=== PATIENT | male | born 1995 | race Caucasian/White ===

== ENCOUNTER 2019-03-12 19:55 | Emergency (ER) | payer SELFPAY ==
[2019-03-12 19:56] VITALS: BP 149/93; PULSE 60; RESP 18; TEMP 37.2; O2SAT 97; BMI 29.9
--- NOTE | 2019-03-12 20:27 | ED.DCSUM_ITS ---
History of Present Illness Chief Complaint: Laceration Informant: Patient Onset: Today Mechanism/Context: Incised Quality of Pain: - - Patient denies pain Current Severity: Gone Maximum Severity: Mild Worsened by: Initial injury Relieved by: Not applicable Narrative: Patient is a 23-year-old [id number] male who was skinning a deer and sustained a laceration over the the MCP joint left long finger. He is able to extend and flex his fingers. Immunizations up-to-date. He denies antibiotic allergies. He denies paresthesia, anesthesia or motor weakness. He has no other complaints. Tetanus Immunization: 5-10 years Prior similar symptoms: No Recent Illness/Hospitalization: No - Past Medical History (1) No significant past medical history Status: Acute Past Medical History - Allergies and Home Meds Allergies/Adverse Reactions: Allergies No Known Allergies Allergy (Verified 07/04/14 11:32) Primary Care Physician: Phoenix Coughlin MD [Primary Care Provider] - Prior records reviewed: No Past Medical History: None Surgical History: no surgical history Lives: Spouse/ Significant Other Smoking Status: Never smoker Drugs: None Review of Systems Musculoskeletal: Denies: Myalgias, Arthralgias, Neck pain, Back pain, Swelling, Extremity Pain Skin: Reports: Wounds. Denies: Rash, Abscess, Abrasions Neurological: Denies: Weakness, Parasthesia, Numbness Endocrine: Denies: Polyuria, Polydipsia Hematologic: Denies: Easy bruising, Easy bleeding Physical Exam Vital Signs/Narrative: Vital Signs Temp Pulse Resp BP Pulse Ox 03/12/19 19:56 98.9 F 60 18 149/93 H 97 Inital Vital Signs reviewed: Yes General: Well nourished, Well developed Head: Normocephalic, Atraumatic Eyes: Perrl, EOMI Cardiovascular: Regular rate, Regular rhythm, No murmurs, Normal S1, Normal S2 Respiratory: No distress, CTA bilaterally, Chest nontender Skin: Normal color, No rash, Cyanosis, Diaphoresis, Jaundice, Trauma - There is a 7 mm laceration over the MCP joint of the left long finger. Neurological: Alert, Oriented x3, Cranial nerves II-XII grossly intact, Normal Strength, Normal Sensation, - - The extensor commonest tendon is functionally intact. Visualizing the wound and position his hand was then during the injury there appears to be a laceration of the extensor commonness tendon. - Glascow Coma Scale Eye Opening: Spontaneous Motor: Obeys Commands Verbal: Oriented Coma Scale Total: 15 Diagnostic/Tx/Re-eval - Medical Decision Making Patient has a laceration which needs exploration. Plan is to anesthetize the area and extend the laceration to visualize the extensor tendon and determine if this is a small wilberto in the tendon versus a significant laceration. With laceration extensor, tendon. He was referred to Dr. Miller does hand surgery. Patient was instructed to call office to be seen in 2 to 3 days. He received first dose of antibiotic's in the emergency department and discharged prescription for antibiotics. Procedures Procedure(s): The area was anesthetized with 1% lidocaine for local infiltration. Wound was irrigated. The laceration was extended using a 15 blade. There is a laceration of the extensor commonness tendon. The laceration is an oblique angle and involves 85 to 90% of the tendon. The wound was irrigated. Using 6-0 Prolene a [id number] stitch was placed which approximated the tendon. The knot was buried. Patient's wound/hand and forearm was cleansed. He was placed in a plaster fabricated splint so that his fingers and wrist were in extension to alleviate any tension on the tendon. ED Disposition - Plan for ED Patient: Disposition: Home or Assisted Living Diagnosis: Extensor tendon laceration of finger with open wound Instructions: LACERATION, Tendon Prescriptions: Cephalexin [Keflex] 500 mg PO Q8 #14 cap Transmission Status: Pending to [facility] Referrals: Phoenix Coughlin MD [Primary Care Provider] - Aimee Miller DO [STAFF PHYSICIAN] - 2 Days for wound check Additional Instructions: Must keep splint absolutely clean and dry
[2019-03-12] MEDS: Cephalexin 250 MG Capsule 500 MG PO (22:06)
[2019-03-12 22:09] VITALS: BP 128/84; PULSE 65; RESP 15; O2SAT 98
== END 2019-03-12 22:10 | disposition home or self-care (01) ==
PROVIDERS: Emergency Provider Emergency Medicine; Family Provider Family Medicine; PCP Family Medicine
DX: S66.323A Laceration of extensor muscle, fascia and tendon of left middle finger at wrist and hand level, initial encounter (principal); W26.8XXA Contact with other sharp object(s), not elsewhere classified, initial encounter; Y93.9 Activity, unspecified; Y92.9 Unspecified place or not applicable
CPT/HCPCS: 26418; 29125; 99283

== ENCOUNTER 2019-03-21 11:20 | Day surgery (SDC) | payer SELFPAY ==
[2019-03-15 14:24] VITALS: BMI 29.9
--- NOTE | 2019-03-20 02:52 | HP_ITS ---
I have re-examined the patient. There are no clinical changes since date of exam. Intake Vital Signs 03/15/19 Body Mass Index (BMI) 29.9 Intake Visit Reasons: Left hand Is patient in pain?: Yes Pain scale (1-10): 4 Allergies No Known Allergies Allergy (Verified 03/15/19 14:24) [facility] Social History (Updated 03/20/19 @ 14:52 by Aimee Miller DO) Smoking Status: Never smoker HPI Left hand: Surgical H&P: Yes Details: Parts of this documentation were recorded by a scribe, this documentation accurately reflects the service provided and the decisions made by me, Aimee Miller DO 03/15/19 1420. ALF COKER is a 23 year old M here today for an ED followup on his left hand. Patient states that he was skinning a deer and accidently cut his hand. Patient notes that he went to the ED where he was stitched. Patient was put into a splint which he has kept on at all times. He was given cephalexin which he has been taking. He states that he was very sore yesterday but it is better today. He denies any fevers or chills. ROS Musc Reports joint pain, Reports stiffness Skin/Breast Reports system reviewed and no additional complaints, except as docu Neuro Yes system reviewed and no additional complaints, except as docu Ortho Exam Right Wrist/Hand Skin/Wound: Yes Swelling Left Wrist/Hand Date of injury: 03/12/19 Skin/Wound: Yes Swelling Contralateral Normal: Yes A1 sanam trigger: No No rales rhonchi wheezing, no abdominal pain, no audible bruits Assessment & Plan Plan Personally reviewed the patient's medical history, medications, surgeries and recent exams if available. X-rays were reviewed. There is no obvious fracture, dislocation, or lucency noted. Educated on the anatomy of the hand and reviewed mechanism of the tendons. He has a significant tendon laceration of the extensor tendon 3rd finger of the left hand. Reviewed post op restrictions, post op rehab and encouraged him to stop chewing. Reviewed the pre-operative plans with the patient. Risks and benefits of the procedure were fully explained, including but not limited to infection, neurovascular injury, continued pain, arthritis, stiffness, need for further surgery, re-injury, DVT, PE, general risks of anesthesia, and loss of limb or life. The patient understands all the risks and does wish to proceed with written consent. Follow up post op or sooner if pain, swelling, numbness or associated symptoms, or concerns develop. All questions answered. Patient in agreement of plan. Coding Level of Care Code Off young,lamont,level 3 03/20/19 1452 <Electronically signed by Aimee iglesias DO> Date _ Aimee Miller DO
[2019-03-21] VITALS (8 sets, daily range): BP systolic 117–139; BP diastolic 78–95; PULSE 58–80; RESP 14–16; TEMP 36.3–37.1; O2SAT 97–99; BMI 30.2
[2019-03-21] MEDS: Lactated Ringers 1,000 ML 100 ML IV (12:03)
[2019-03-21] MEDS: Cefazolin 2 GM in 0.9% Normal Saline 100 ML IV (15:13)
--- NOTE | 2019-03-21 15:17 | DCINST_ITS ---
Discharge Diet: No Restrictions - leave splint in place, follow up in one week with vicente ZAMAN for initiation of OT [phone] Discharge Activity: May Not Drive May shower in (days): 1 Ice area for (Minutes): 20 - Every hour while awake. Weight Bearing Status: Weight bearing as tolerated Keep extremity elevated above heart level: Operative Extremity Call your doctor if your incision/area has: Continuous Slow Oozing, Sudden Increased Bleeding, Increased Pain/ Swelling, Increased Redness, Foul Smelling Discharge Call your doctor if you observe: Fever of 101 or Higher, Coldness, Increased Pain, Numbness or Tingling, Change in Color, Calf discomfort Allergies/Adverse Reactions: Allergies No Known Allergies Allergy (Verified 03/21/19 11:49) Medications to take at Discharge Oxycodone HCl/Acetaminophen [Percocet 5/325] 1 - 2 tablet PO Q6H PRN PRN 5 Days #28 tablet 03/21/19 The following prescriptions were given: Oxycodone HCl/Acetaminophen [Percocet 5/325] 1 - 2 tablet PO Q6H PRN PRN 5 Days #28 tablet PRN Reason: Pain Transmission Status: Sent to [facility] Phys[facility] [Primary [facility] Provider] - Test Results: Test results from this visit will be discussed in further detail at your follow- up appointment, if applicable. Please Follow Up With: Aimee Miller, - [phone]
--- NOTE | 2019-03-21 15:17 | OP.PCM_ITS ---
Report of Operation Date of Procedure: 03/21/19 Pre-Operative Diagnosis: left middle finger extensor laceration/traumatic Post-Operative Diagnosis: same Surgery/Procedure Performed:: left middle finger laceration revision, repair extensor tendon middle finger with paratenon repair Type of Anesthesia:: BlockTavo Anesthesiologist: David Huang Estimated Blood Loss (mL): none Fluids Replaced: 800cc Description of Procedure: Preop note Patient is a 23-year-old male who was using a knife and accidentally cut his left middle finger with extensor tendon. Went to the emergency room where they noted that the tendon was 80% lacerated but was still intact and sent to my office for further evaluation. Patient has extensor tendon extensor mechanism intact of his left middle finger he is right-hand dominant he denies numbness tingling or other issues. Discussed operative indications patient elected proceed with operative indication for his left middle finger repair as indicated. Risk benefits and alternatives discussed with patient. Risks including but not limited to blood loss, blood clot, infection, neurovascular, failure procedure, loss of life and loss of limb. Patient is aware like to proceed with left middle finger laceration debridement irrigation and repair of extensor tendon. Operative note Patient seen and examined preop holding area. Left hand was marked. Middle finger was marked. Patient brought to the operating room and placed supine on the operating table. Sign, anesthesia, antibiotics were administered. Left arm was prepped and draped in usual sterile fashion with a tourniquet around his upper arm after Tavo block was initiated. We then marked out our incision extended both proximally and distally extending from the inch oblique incision over his MP joint of his left third and finger. Timeout is performed. We use a 15 blade to cut through the skin dissect down tenotomies and to the level of the laceration which the ER head tagged with a stitch as well. We remove the stitch. We gently debrided back the tendon edges to stable tendon repair we then used a 4-0 Ethibond in a Krak?w stitch and then reapproximated the tendon edges with the finger in extension. We then did oversew tucking the knot to complete our repair. We then repaired the peritenon with 3-0 Vicryl. We irrigated the incision with copious muscle sterile saline debrided any loose pieces or anything that we had encountered which there was no obviously pieces but we did visually inspect the entire area. We did trim back the laceration to a better skin edge. The skin was then closed with interrupted 4-0 nylon stitches. Sterile dressings were applied tourniquet was deflated for a total working time of 30 minutes. Patient tolerated procedure well no complication child recovery room in stable condition Postoperative note Nonweightbearing left upper semi-splint at all times Pharmacy has pain prescription Call with increased pain numbness tingling further issues arise Patient did receive a local block postoperatively in the operating room Call with concerns Dragon disclaimer This note was generated with [employer] dictation software. It may contain incorrect words, spelling, and punctuation that were not noted in checking the note before signing.
[2019-03-21] MEDS: Bupivacaine 0.25% 30 ML Vial (15:59)
[2019-03-21] MEDS: HYDROcodone Bitartrate/Apap 5/325 Tablet PO (17:09)
== END 2019-03-21 17:26 | disposition home or self-care (01) ==
LOC: SDC 11:25 → AC 11:29
PROVIDERS: Referring Provider Orthopaedic Surgery; Visit Provider Orthopaedic Surgery
PROC: (CPT 26418; principal; 2019-03-21 12:10)
DX: S66.323A Laceration of extensor muscle, fascia and tendon of left middle finger at wrist and hand level, initial encounter (principal); W45.8XXA Other foreign body or object entering through skin, initial encounter; Y93.89 Activity, other specified; Y92.9 Unspecified place or not applicable; Y99.9 Unspecified external cause status; F17.220 Nicotine dependence, chewing tobacco, uncomplicated
CPT/HCPCS: 26418; J7120; J2405

== ENCOUNTER 2019-05-16 08:30 | Outpatient (RCR) | payer SELFPAY ==
[2019-03-15 14:24] VITALS: BMI 29.9
[2019-03-21 11:50] VITALS: BMI 30.2
--- NOTE | 2019-03-29 14:10 | HP.OTEVAL_ITS ---
Patient's Visit Information ALF COKER is a 24 year old M, referred to Occupational Therapy by Aimee Miller DO, with a diagnosis of left 3rd digit extensor tendon repair. Date of Evaluation: 03/28/19 Occupational Therapist: Adia Vazquez, RAPHAEL/Jessica, CHT - Subjective Subjective: This 24 year old male was seen for OT eval with dx of 3rd distal extensor tendon repair- pt went to ER on Mar 12, and followed with sx on due to laceration of extensor tendon- pt arrives with sx dressing on in need of zone 5 orthosis and ed. on protocol. pt currently not working - ADLs Comments: pt limited with all bilateral hand use due to healing tendon repair- pt in need of increase assistance with home mtg and ADL tasks at this time. - Pain left hand 1 Pain Intensity Range: 1, 4 - ROM MP: right MF 90 PIP: right MF90 DIP: right MF 60 ROM Comments: left not tested at this time- pt demo full MCP ext - Sensation Sensation Comments: denies - Quick DASH-Disab of Arm,Shoulder& Hand Quick DASH Score: 68.1800 - Goals Goal:100% adherence to protocol: Yes Comment: zone 5 extensor tendon protocol Goal:Daily scar massage when approriate: Yes Goal:ROM equal to unaffected hand: Yes Goal:Community Worker/Pinch strength at least 75% of unaffected hand: Yes Goal:No pain with affected hand use: Yes Goal:Full use of affected hand in daily activities including: Yes Goal:Decrease scar hypersensitivity: Yes - Rehabilitation General Assessment: pt demo healing incision over zone 5 MF MCP. Due to healing extensor tendon repair pt demo need for skilled OT services 2x week for 6 weeks to assist pt with recovery, ed. pt on tendon repair protocol zone 5 ICAM- therapist jacqeu. custom orthosis, and ed. pt on light AROM of DIP and PIP- no active motion of MCP-at this time- will initate with protocol instructions- light wrist ROM (50%) of motion. pt demo understanding and agree to POC. Rehabilitation Potential: Good - Anticipated Interventions Anticipated Interventions: ICAM Protocol, A/AAROM/PROM, Strengthening, Scar Care, Triggerpoint Release, Desensitization, Sensory Retraining, Modalities, Orthoses, Joint Protection/Energy Conservation - Visit Plan Frequency: 1-2x /Week Duration: 6 Weeks TEXT: Thank you for the opportunity to evaluate your patient. For Medicare and Medicare HMO plans, please review the plan of care and approve it. It will need to be FAXED BACK to us at [phone] for Medicare purposes. Please let me know if there are questions or concerns regarding this plan of care. Physician Signature: Date:
--- NOTE | 2019-08-18 09:31 | HP.OTDCSUM ---
It has been my pleasure to treat ALF COKER under orders from Dr. Aimee Miller DO, for the diagnosis of left 3rd digit extensor tendon repair for a total of 7 visit(s). Please see the following information for a summary of their discharge status. % Improvement: 85 Objective/Function: right process cheese cooker strength 100#left 85#. right lateral pinch 14# left 14# right tripod inch 16# left 14#. left MF MCP +5/100 PIP +5/110 Patient Goals: Regain Mobility, Regain Strength, Improve Fine Motor Skills, Use Hand/Wrist/Arm Normally Again Goal:100% adherence to protocol: Yes Goal:Daily scar massage when approriate: Yes Goal:ROM equal to unaffected hand: Yes Goal:Building Construction Professor/Pinch strength at least 75% of unaffected hand: Yes Goal:No pain with affected hand use: Yes Goal:Full use of affected hand in daily activities including: Yes Goal:Decrease scar hypersensitivity: Yes Plan: held prgression due to uncrease in pain If there are questions or concerns regarding this patient's occupational therapy, please fell free to call me at [phone]. Thank you for the referral of this patient. Sincerely, Adia Vazquez, OTR/L, CHT
== END 2019-05-16 19:00 | disposition home or self-care (01) ==
LOC: OT 08:30
PROVIDERS: Family Provider Family Medicine; PCP Family Medicine; Referring Provider Orthopaedic Surgery; Visit Provider Orthopaedic Surgery
DX: Z98.890 Other specified postprocedural states (principal)
CPT/HCPCS: 97035; 97110; 97166; 97530

== ENCOUNTER 2020-02-13 11:55 | Emergency (ER) | payer SELFPAY ==
[2019-04-02 09:00] VITALS: BMI 30.2
[2020-02-13 11:57] VITALS: BP 157/100; PULSE 88; RESP 18; TEMP 35.1; O2SAT 99; BMI 29.2
== END 2020-02-13 15:35 | disposition left against medical advice (07) ==
LOC: ED 14:36
PROVIDERS: Emergency Provider Emergency Medicine
DX: T14.8XXA Other injury of unspecified body region, initial encounter (principal); Z53.21 Procedure and treatment not carried out due to patient leaving prior to being seen by health care provider; X58.XXXA Exposure to other specified factors, initial encounter; Y93.9 Activity, unspecified; Y92.9 Unspecified place or not applicable; Y99.9 Unspecified external cause status

== ENCOUNTER 2020-07-02 11:35 | Emergency (ER) | payer OTHER, SELFPAY ==
[2020-07-02 11:36] VITALS: BP 185/113; PULSE 60; RESP 18; TEMP 36.4; O2SAT 100; BMI 30.6
--- NOTE | 2020-07-02 11:44 | EKG12_ITS ---
Test Reason : CP Blood Pressure : / mmHG Vent. Rate : 046 BPM Atrial Rate : 046 BPM P-R Int : 146 ms QRS Dur : 110 ms QT Int : 436 ms P-R-T Axes : 003 050 017 degrees QTc Int : 381 ms Sinus bradycardia with Premature atrial complexes Possible Inferior infarct , age undetermined Abnormal ECG Confirmed by EDUARDO NOBLE, SHENA ([id number]), website/blog editor LUKE BURKS ([id number]) on 07/04/2020 9:29:31 AM Referred By: RYAN Confirmed By:MAXIMILIANO CLARK MD
[2020-07-02] MEDS: Morphine 4 MG/ML Syringe IV (11:53)
[2020-07-02] MEDS: 0.9% Normal Saline 1,000 ML 1000 ML IV (11:53)
[2020-07-02 11:54] LABS: Absolute Neutrophil Count 3.9 X10^3/uL (2.0-7.7); Basophil# 0.05 X10^3/uL; Basophil% 0.8 % (0-1); Eosinophil# 0.09 X10^3/uL; Eosinophils% 1.4 % (0-5); Hematocrit 46.6 % (40-54); Hemoglobin 15.5 g/dL (13.0-16.5); Lymphocyte % 29.9 % (19-41); Mean Corp Hgb Conc 33.3 g/dL (32-36); Mean Corpuscular Hgb 30.6 pg (27.0-32.0); Mean Corpuscular Volume 91.9 fL (80-94); Mean Platelet Vol. 9.6 fl (6.2-12.0); Monocyte# 0.42 X10^3/uL; Monocyte% 6.6 % (0-10); NRBC Flagged by Analyzer 0 % (0-5); Neutrophil # 3.88 X10^3/uL (2.7-7.7); Neutrophil % 61.1 % (47-70); Platelet Count 299 K/mm3 (150-450); RBC Distribution Width CV 12.5 % (11.6-14.6); RBC Distribution Width SD 41.3 fl (35.1-43.9); Red Blood Count 5.07 M/mm3 (4.6-6.2); White Blood Count 6.4 K/mm3 (4.4-11.0)
--- NOTE | 2020-07-02 11:57 | ED.VIS.CHEST ---
History of Present Illness Chief Complaint: Chest Pain Informant: Patient Onset: Today Narrative: Is a 25-year-old male that denies any past medical history presenting with chest, rib and back pain. Patient states he woke up with it today around 10:30 AM. He states he is never had any pain like this before. He states is worse when he moves or tries to take deep breath. He states he feels short of breath because it hurts to take a deep breath. States the pain is constant. Did not take anything for pain prior to arrival. The pain does not radiate but it is diffuse and has chest area. He denies any swelling of his legs or history of PE/DVT. Denies any associated nausea or vomiting. He notes he has not eaten or drank anything yet today. Patient did cut down about 17 trees over the weekend but he states until this morning he is actually been feeling great. Denies feeling sore over the past few days. He denies any other complaints at this time. Past Medical History - Allergies and Home Meds Allergies/Adverse Reactions: Allergies No Known Allergies Allergy (Verified 07/02/20 11:39) Primary Care Physician: [place] [place] [Primary Care Provider] - Past Medical History: None Surgical History: no surgical history Lives: With Family Smoking Status: Never smoker Review of Systems General: Denies: Chills, Fever, Sweats Eyes: Denies: Visual changes - bilaterally, Diplopia ENT: Denies: Rhinorrhea, Sore throat Cardiovascular: Reports: Chest pain. Denies: Palpitations, Heart racing Respiratory: Reports: Dyspnea. Denies: Cough, Dyspnea on exertion Gastrointestinal: Denies: Abdominal pain, Nausea, Vomiting, Diarrhea, Melena, Hematochezia Genitourinary: Denies: Dysuria, Hematuria, Frequency Musculoskeletal: Denies: Back pain, Extremity Pain Skin: Denies: Rash, Wounds Neurological: Denies: Headache, Weakness, Numbness Physical Exam Vital Signs/Narrative: Vital Signs Temp Pulse Resp BP Pulse Ox 07/02/20 11:36 97.5 F L 60 18 185/113 H 100 Inital Vital Signs reviewed: Yes General: Well nourished, Well developed, No Acute Distress Head: Normocephalic, Atraumatic Eyes: Perrl, EOMI ENT: Moist mucous membranes, No rhinorrhea Neck: Supple, Nontender Cardiovascular: Regular rate, Regular rhythm, No murmurs, - - 2+ bilateral DP and radial pulses Respiratory: No distress, Diminished - Bilaterally at the bases, Chest tenderness - Highly reproducible chest pain with palpation of the sternum and anterior ribs. Negative for: Wheezing, Decreased Air Movement Abdomen: Soft, Nontender, Nondistended, Normal bowel sounds Back: Nontender, Normal Inspection Extremities: Nontender, No edema Skin: Normal color, No rash Neurological: Alert, Oriented x3, Cranial nerves II-XII grossly intact, Normal Strength, Normal Sensation Psychological: Normal affect, Normal Mood Diagnostic/Tx/Re-eval Chest X-Ray - ED: 2 View, Read by ED Physician, Read by Radiologist, No Acute Disease - Rhythm Strip Rhythm Strip: Sinus Rhythm Rate: 66 Ectopy: None - EKG Initial EKG Interpretation: Sinus Bradycardia - Sinus bradycardia rate of 46 Normal axis Normal intervals Normal ST segments Treatment: Toradol IV - Medical Decision Making Patient is evaluated for chest pain. It started about 1 hour prior to arrival. Pain is worse with any movement of the chest or deep inspiration. Patient appears uncomfortable but nontoxic and in no acute distress. He is intermittently bradycardic but his blood pressure is actually elevated. I suspect this is just physiologic bradycardia. Cardiac work-up is largely negative. Patient is low risk for PE and D-dimer is negative. I do not think a CTA is indicated. I do not think he has a PE. Differential includes costochondritis and pleurisy. This does not seem to be GI in nature. Patient given dose of Toradol and has significant improvement of his symptoms. He does state he is very nervous about his heart and also very nervous that this could be his gallbladder and his mother had similar symptoms and ended up being her gallbladder. I did add on lipase and LFTs which are normal. I do not think his symptoms are GI in nature and I do not think he is having acute cholecystitis. I do not think right upper quadrant ultrasound is obtained. Will check delta troponin and as long as this is normal patient be discharged home with instructions to take Motrin 600 mg for his pain. He is instructed to follow-up with his primary care doctor and states he will follow-up at the [facility]. Patient is counseled on signs and symptoms requiring return to the emergency room. Patient verbalizes agreement and understand this plan. Patient discharged home in stable and improved condition. ED Disposition - Plan for ED Patient: Disposition: Home or Assisted Living Diagnosis: Acute chest wall pain Instructions: ED Chest Wall Pain, Costochondritis, ED Pleurisy Prescriptions: Ibuprofen [Motrin] 600 mg PO Q6H PRN PRN #20 tab PRN Reason: Pain 1-10 Or Fever Prescription Printed Referrals: [facility] [Primary Care Provider] - Additional Instructions: The exact cause of your chest pain is not clear. It could be inflammation of the cartilage on your chest or could be pleurisy which is inflammation of the lining around her lungs. Either way the treatment is anti-inflammatories like ibuprofen. Your heart, lungs, gallbladder and other work-up are normal. I think you are safe to go home and follow-up with your primary care doctor.
--- NOTE | 2020-07-02 12:00 | RAD_ITS ---
STUDY: X-RAY CHEST REASON FOR EXAM: Male, 25 years old. Chest pain radiating to the shoulders and sternum. TECHNIQUE: PA and lateral views of the chest. COMPARISON: Comparison is made with prior study dated 09/12/2014. FINDINGS: EKG electrodes are seen. The lungs are clear and expanded. There is no demonstrated pleural abnormality. Normal size heart. Normal mediastinum and jane. Normal visualized pulmonary arteries. Normal visualized aortic arch and descending thoracic aorta. Normal visualized thoracic spine. Normal visualized ribs, clavicles, and shoulders. There is no demonstrated abnormality of the visualized soft tissue structures of the upper abdomen. RAD/Chest PA and Lateral IMPRESSION: Normal x-ray examination of the chest. Electronically Signed: Maynor Joe MD at 12:29 EDT , Service support ,
[2020-07-02 12:06] LABS: D-Dimer Quantitative (DVT/PE) <= 0.27 FEU/ug/m (0.27-0.49)
[2020-07-02 12:16] LABS: Anion Gap 3 (5-15); BUN 14 mg/dL (7-18); BUN/Creat Ratio 14.5 RATIO (10-20); CPK Total, Creatine Kinase 133 U/L (39-308); Calcium,Total 9.1 mg/dL (8.5-10.1); Chloride 105 mmol/L (98-107); Creatinine, Serum 0.96 mg/dL (0.70-1.30); EST Glomerular Filtration Rate 101 mL/min (>60); Est Glom Filt Rate - Afr Amer 122 mL/min (>60); Estimated Creatinine Clearance 140.59 ml/min; Glucose 103 mg/dL (74-106); Potassium 3.9 mmol/L (3.5-5.1); Sodium Level 140 mmol/L (136-145); Thyroid Stim Hormone (TSH) 1.61 uIU/mL (0.358-3.74)
[2020-07-02 12:36] VITALS: BP 130/95; PULSE 49; RESP 14; O2SAT 99
[2020-07-02] MEDS: Ketorolac 15 MG/ML Vial IV (12:36)
[2020-07-02 13:00] VITALS: BP 131/78; PULSE 79; RESP 16; O2SAT 98
[2020-07-02 14:00] VITALS: BP 128/74; PULSE 81; RESP 16; O2SAT 98
[2020-07-02 14:11] LABS: AST(SGOT) 21 U/L (15-37); Alanine Aminotransfer ALT/SGPT 50 U/L (16-61); Albumin, Serum 4.1 g/dL (3.2-5.0); Alkaline Phosphatase 73 U/L (45-117); Globulin 3.8 g/dL (2.2-4.2); Lipase 63 U/L (73-393); Protein, Total 7.9 g/dL (6.4-8.2)
[2020-07-02 15:00] VITALS: BP 136/78; PULSE 81; RESP 16; O2SAT 98
[2020-07-02 15:46] VITALS: BP 138/74; PULSE 73; RESP 19; O2SAT 96
== END 2020-07-02 15:47 | disposition home or self-care (01) ==
PROVIDERS: Emergency Provider Emergency Medicine
DX: R07.89 Other chest pain (principal); M54.9 Dorsalgia, unspecified; R07.81 Pleurodynia; R00.1 Bradycardia, unspecified; R03.0 Elevated blood-pressure reading, without diagnosis of hypertension
CPT/HCPCS: 71046; 80048; 80076; 82550; 83690; 84443; 84484; 85025; 85379; 93005; 96361; 96374; 96375; 99284; J7030; A4216

== ENCOUNTER 2022-01-26 18:00 | Emergency (ER) | payer OTHER, SELFPAY ==
[2022-01-26 18:02] VITALS: BP 158/108; PULSE 63; RESP 15; TEMP 37.2; O2SAT 99; BMI 25.8
[2022-01-26 18:20] VITALS: BP 158/108; PULSE 63; RESP 15; TEMP 37.2; O2SAT 99
--- NOTE | 2022-01-26 18:21 | ED.VIS.GI ---
HPI HPI - GI History of Present Illness Chief Complaint: Abd Pain Informant: patient Abdominal Pain/Flank Pain Onset: Days (4) Context: Gradual Onset Timing: Continuous and Waxes and wanes Quality: Sharp Location: LLQ Worsened by: Food Relieved by: Nothing Nausea/Vomiting/Emesis GI Symptom: Negative for Nausea or Vomiting Diarrhea/Melena/Hematochezia GI Symptom: Negative for Diarrhea, Melena or Hematochezia Associated Symptoms Associated Symptoms: Negative for Dysuria, Frequency or Hematuria Narrative Narrative: Patient presents with left-sided abdominal pain that has been getting worse over the last 4 days. Patient states it is gradually getting worse. Patient states it is constant. Patient states it waxes and wanes. Patient describes the pain as sharp. Patient states it is mainly over the left mid abdomen and left lower abdomen. Patient states it is worse after eating. Patient states nothing seems to help with it. Patient denies any nausea or vomiting. Patient states he has a history of diverticulosis. Patient denies any fevers or chills. Patient denies any urinary complaints. PFSH [facility] Medical History (Updated 01/26/22 @ 21:[address] Jamir Mccormack DO) Arachnoid cyst Diverticulosis History of pineal cyst Home Medications ibuprofen 600 mg tablet 600 mg PO Q6H PRN PRN Pain 1-10 Or Fever #20 TABLETS 07/02/20 [Rx Last Taken Unknown] ciprofloxacin HCl 500 mg tablet 500 mg PO BID #20 TABLETS 01/26/22 [Rx Last Taken Unknown] metronidazole 500 mg tablet 500 mg PO Q6H #40 tabs 01/26/22 [Rx Last Taken Unknown] Allergy/AdvReac Type Severity Reaction Status Date / Time No Known Allergies Allergy Verified 01/26/22 18:04 Surgical History S/P tendon repair Social History Smoking Status: Never smoker ROS ROS ED Constitutional Constitutional ED: Denies chills or fever(s) Eyes Eyes: Denies blurry vision or change in vision ENT ENT ED: Denies rhinorrhea or sore throat Cardiovascular Cardiovascular: Denies chest pain or palpitations Respiratory/Chest Respiratory/Chest: Reports cough; Denies dyspnea Gastrointestinal Gastrointestinal: Reports abdominal pain; Denies diarrhea, melena, nausea or vomiting Genitourinary Genitourinary ED: Denies dysuria or hematuria Musculoskeletal Musculoskeletal: Denies back pain or neck pain Integumentary Denies abscess or rash Neurologic Neurologic: Reports headache(s); Denies weakness Allergic/Immunologic Allergic/Immunologic ED: Denies mouth swelling or urticaria EXAM Physical Exam Const Vital Signs: 01/26/22 18:02 01/26/22 18:20 01/26/22 20:02 Temperature 99 F 99 F Temperature Source Temporal Temporal Pulse Rate 63 63 76 Respiratory Rate 15 15 18 Blood Pressure 158/108 H 158/108 H Blood Pressure Mean 124 124 Pulse Ox 99 99 99 Oxygen Delivery Method Room Air Room Air Room Air Positive well nourished and well developed General Appearance ED: well developed HEENT Reports moist mucous membranes Neck supple and no JVD Resp normal respiratory effort and clear to auscultation bilaterally Cardio regular rate, regular rhythm and no murmurs GI normal to inspection, nondistended, normoactive bowel sounds Palpation: soft and tender LLQ; Negative for guarding or rebound tenderness present Extremity normal to inspection General Extremety ED: Negative for edema or tenderness General Extremity: Negative for edema Neuro oriented x3, CN's II-XII intact bilaterally and no sensory deficits noted Sensorium / Orientation: alert Motor Exam: strength 5/5 throughout Psych mental status grossly normal Skin no rashes or lesions noted MDM MDM MDM Narrative Medical decision making narrative: Patient was given IV fluids, morphine, and Zofran. CBC was within normal limits. Comprehensive metabolic profile was essentially within normal limits. Lipase was normal. Urinalysis does not show any evidence of urinary tract infection or hematuria. CT scan of the abdomen pelvis was obtained. There is diverticulitis of the descending colon. There is no perforation or abscess. Patient was advised of his findings. Patient was given a dose of Cipro and Flagyl here. Patient was given prescriptions for Cipro and Flagyl. Patient was instructed to avoid alcohol while taking the Flagyl. Patient was instructed to follow-up with his primary care physician in 5 to 7 days. Patient understood and was agreeable with the plan. All questions were answered. Lab Data Attestation: I reviewed the patient's lab results. Labs: Laboratory Results - last 24 hr 01/26/22 01/26/22 01/26/22 18:10 18:10 19:30 WBC 9.8 RBC 4.38 L Hgb 13.7 Hct 40.1 MCV 91.6 MCH 31.3 MCHC 34.2 RDW Std Deviation 39.8 RDW Coeff of Debbie 11.9 Plt Count 328 MPV 10.2 Immature Gran % (Auto) 0.300 Neut % (Auto) 62.4 Lymph % (Auto) 30.4 [place] % (Auto) 5.6 Eos % (Auto) 0.8 Baso % (Auto) 0.5 Absolute Neuts (auto) 6.1 Absolute Lymphs (auto) 2.98 Nucleated RBC % 0 Sodium 139 Potassium 3.3 L Chloride 105 Carbon Dioxide 26.0 Anion Gap 8 BUN 16 Creatinine 0.88 Estim Creat Clear Calc 143.76 Est GFR (MDRD) Af Amer 135 Est GFR (MDRD) Non-Af 111 BUN/Creatinine Ratio 18.3 Glucose 97 Calcium 9.8 Total Bilirubin 0.80 AST 15 ALT 20 Alkaline Phosphatase 77 Total Protein 8.6 H Albumin 4.6 Globulin 4.0 Albumin/Globulin Ratio 1.2 Lipase 99 Urine Color Yellow Urine Clarity Clear Urine pH 5.0 Ur Specific [place] 1.025 Urine Protein 30 H Urine Glucose (UA) Normal Urine Ketones 150 A* Urine Occult Blood Negative Urine Nitrite Negative Urine Bilirubin Negative Urine Urobilinogen 1 H Ur Leukocyte Esterase 25 H Urine RBC 0 SEEN Urine WBC 0-5 SEEN Ur Squamous Epith Cells 0-5 SEEN Urine Bacteria 1+ Urine Mucus 1+ Radiography Diagnostic Testing: Clinical Impression(s) from Imaging Studies Abdomen/Pelvis CT 01/26/22 18:25 IMPRESSION: Acute uncomplicated diverticulitis of the distal descending colon. Electronically Signed: Cora Wakefield MD at 20:34 EDT [place] Location ID and State: [id number] / Tel , Service support , Discharge Plan Triage Chief Complaint: Abd Pain ED Provider: Jamir Mccormack Dx/Rx/DC Orders Clinical Impression: Diverticulitis large intestine, Abdominal pain, acute, left lower quadrant Instructions: ED Diverticulitis Prescriptions: New metronidazole [metronidazole] 500 mg tablet 500 mg PO Q6H Qty: 40 0RF ciprofloxacin HCl [ciprofloxacin HCl] 500 mg tablet 500 mg PO BID Qty: 20 0RF No Action ibuprofen 600 MG tablet 600 mg PO Q6H PRN PRN (Reason: Pain 1-10 Or Fever) Qty: 20 0RF [facility] [facility] - 5-7 Days Disposition Disposition: Home, Self Care
--- NOTE | 2022-01-26 18:25 | CT_ITS ---
EXAM: CT ABDOMEN AND PELVIS WITH INTRAVENOUS CONTRAST CLINICAL INDICATION: Abdominal pain -- IV PO Contrast TECHNIQUE: Helically acquired images were obtained of the abdomen and pelvis with intravenous contrast. This CT exam was performed using one or more of the following dose reduction techniques: automated exposure control, adjustment of the mA and/or kV according to patient size, and/or use of iterative reconstruction technique. This report was created using [employer] report generation technology. CONTRAST: Oral and amp; IV Gastrografin and amp; 100mL Isovue-370 COMPARISON: None. FINDINGS: LOWER THORAX: Unremarkable. Lung bases are clear. No cardiomegaly. No significant pericardial effusion. ABDOMEN: LIVER: Unremarkable. Homogeneous. No focal mass. GALLBLADDER AND BILE DUCTS: Unremarkable. No calcified gallstones. No gallbladder distention or wall edema. No intra- or extrahepatic biliary ductal dilation. PANCREAS: Unremarkable. No focal cystic or solid mass. SPLEEN: Unremarkable. Normal size without focal cystic or solid mass. ADRENALS: Unremarkable. No nodules. KIDNEYS AND URETERS: Unremarkable. Normal renal size and position. No hydronephrosis. STOMACH AND BOWEL: Diverticulosis. Mild to moderate pericolonic stranding around the distal descending colon consistent with acute diverticulitis. No organized collection. No bowel obstruction. PELVIS: APPENDIX: No evidence of acute appendicitis. Normal visualized appendix. BLADDER: Unremarkable. REPRODUCTIVE: Unremarkable as visualized. No mass. ABDOMEN and PELVIS: INTRAPERITONEAL SPACE: Unremarkable. No ascites or other fluid collection. No free air. BONES/JOINTS: Unremarkable. No suspicious lytic or blastic abnormality. SOFT TISSUES: Unremarkable. No discrete abdominal or pelvic wall hernia. VASCULATURE: Unremarkable. Abdominal aorta is normal in caliber. LYMPH NODES: Unremarkable. No enlarged lymph nodes. CT/Abdomen/Pelvis WITH Contrast IMPRESSION: Acute uncomplicated diverticulitis of the distal descending colon. Electronically Signed: Cora Wakefield MD at 20:34 EDT [place] Location ID and State: [id number] / Tel , Service support ,
[2022-01-26] MEDS: Morphine 4 MG/ML Syringe IV (18:33)
[2022-01-26] MEDS: 0.9% Normal Saline 1,000 ML 1000 ML IV (18:33)
[2022-01-26] MEDS: Ondansetron 4 MG/2 ML Vial IV (18:34)
[2022-01-26 18:38] LABS: Absolute Lymphocyte Count 2.98 X10^3/uL (0.83-4.51); Absolute Neutrophil Count 6.1 X10^3/uL (2.0-7.7); Basophil# 0.05 X10^3/uL; Basophil% 0.5 % (0-1); Eosinophil# 0.08 X10^3/uL; Eosinophils% 0.8 % (0-5); Hematocrit 40.1 % (40-54); Hemoglobin 13.7 g/dL (13.0-16.5); Lymphocyte # 2.98 X10^3/ul (0.83-4.51); Lymphocyte % 30.4 % (19-41); Mean Corp Hgb Conc 34.2 g/dL (32-36); Mean Corpuscular Hgb 31.3 pg (27.0-32.0); Mean Corpuscular Volume 91.6 fL (80-94); Mean Platelet Vol. 10.2 fl (6.2-12.0); Monocyte# 0.55 X10^3/uL; Monocyte% 5.6 % (0-10); NRBC Flagged by Analyzer 0 % (0-5); Neutrophil # 6.11 X10^3/uL (2.7-7.7); Neutrophil % 62.4 % (47-70); Platelet Count 328 K/mm3 (150-450); RBC Distribution Width CV 11.9 % (11.6-14.6); RBC Distribution Width SD 39.8 fl (35.1-43.9); Red Blood Count 4.38 M/mm3 (4.6-6.2); White Blood Count 9.8 K/mm3 (4.4-11.0)
[2022-01-26 18:48] LABS: ALB/GLOB Ratio 1.2 RATIO (0.9-2.4); AST(SGOT) 15 U/L (15-37); Alanine Aminotransfer ALT/SGPT 20 U/L (16-61); Albumin, Serum 4.6 g/dL (3.2-5.0); Alkaline Phosphatase 77 U/L (45-117); Anion Gap 8 (5-15); BUN 16 mg/dL (7-18); BUN/Creat Ratio 18.3 RATIO (10-20); Calcium,Total 9.8 mg/dL (8.5-10.1); Chloride 105 mmol/L (98-107); Creatinine, Serum 0.88 mg/dL (0.70-1.30); EST Glomerular Filtration Rate 111 mL/min (>60); Est Glom Filt Rate - Afr Amer 135 mL/min (>60); Estimated Creatinine Clearance 143.76 ml/min; Glucose 97 mg/dL (74-106); Lipase 99 U/L (73-393); Potassium 3.3 mmol/L (3.5-5.1); Protein, Total 8.6 g/dL (6.4-8.2); Sodium Level 139 mmol/L (136-145)
[2022-01-26 19:42] LABS: Red Blood Cells-Urine 0 SEEN /hpf (0-5)
[2022-01-26 19:45] LABS: Color, Urine Yellow (Yellow); Glucose, Dipstick Normal (Normal); Leukocyte Esterase-Dipstick 25 /ul (Negative); Nitrite-Dipstick Negative (Negative); Occult Blood-Urine Negative /ul (Negative); Protein-Dipstick 30 mg/dl (Negative); Specific Gravity, Urine 1.025 (1.002-1.030); Urine Bilirubin Dipstick Negative (Negative); Urine Clarity Clear (Clear); Urine Urobilinogen 1 mg/dl (Normal)
[2022-01-26 19:51] LABS: Ketone-Dipstick 150 mg/dl (Negative)
[2022-01-26 19:54] LABS: Bacteria 1+ /hpf (None Seen); Squamous Epithelial Cells - UA 0-5 SEEN /hpf (0-5); White Blood Cells 0-5 SEEN /hpf (0-5)
[2022-01-26 19:55] LABS: Mucous, Urine 1+ /hpf (<or=2+)
[2022-01-26 20:02] VITALS: PULSE 76; RESP 18; O2SAT 99
[2022-01-26] MEDS: Ciprofloxacin 500 MG Tablet PO (21:24)
[2022-01-26] MEDS: metroNIDAZOLE 500 MG Tablet PO (21:24)
== END 2022-01-26 21:34 | disposition home or self-care (01) ==
PROVIDERS: Emergency Provider Emergency Medicine; Visit Provider Emergency Medicine
DX: K57.32 Diverticulitis of large intestine without perforation or abscess without bleeding (principal); R10.32 Left lower quadrant pain; Z79.899 Other long term (current) drug therapy
CPT/HCPCS: 74177; 80053; 81001; 83690; 85025; 96361; 96374; 96375; 99284; J7030; Q9967; A4216; J2405

== ENCOUNTER 2023-05-24 08:21 | Emergency (ER) | payer OTHER, SELFPAY ==
[2023-05-24 08:23] VITALS: BP 145/88; PULSE 61; RESP 16; TEMP 36.4; O2SAT 97; BMI 25.7
--- NOTE | 2023-05-24 09:02 | ED.VIS.GI ---
HPI HPI - GI History of Present Illness Chief Complaint: Abd Pain Informant: patient Abdominal Pain/Flank Pain Onset: Today Context: Sudden Onset Timing: Waxes and wanes Quality: Aching Location: LUQ and LLQ Worsened by: Nothing Relieved by: - (Pressure) Nausea/Vomiting/Emesis GI Symptom: Positive for Nausea and Vomiting Onset: Yesterday Quality: Positive for Nonbilious; Negative for Blood streaks, Coffee ground or Hematemesis Diarrhea/Melena/Hematochezia GI Symptom: Positive for Diarrhea and Melena; Negative for Hematochezia Onset: Today Stool Quality: Positive for Black Associated Symptoms Associated Symptoms: Negative for Dysuria, Frequency or Hematuria Narrative Narrative: Patient presents with abdominal pain that began today. Patient states his pain is mainly over the left side of his abdomen but radiates to the right. Patient states it began rather suddenly this morning. Patient states that it has been waxing and waning. Patient states nothing makes it worse. Patient states if he puts pressure on the area it feels better. Patient admits to some nausea and vomiting yesterday but denies any vomiting today. Patient states he has noted some black stools today. Patient states he has had some watery diarrhea. Patient states he had an upset stomach couple days ago and took some Pepto-Bismol. Patient thinks his stools may have been black prior to taking Pepto-Bismol but is not sure. Patient denies any urinary complaints. Patient denies any fevers or chills. Patient states he has a history of diverticulitis and thinks it could be a flareup of this. [facility] Medical History Arachnoid cyst Diverticulosis History of pineal cyst Home Medications ibuprofen 600 mg tablet 600 mg PO Q6H PRN PRN Pain 1-10 Or Fever #20 TABLETS 07/02/20 [Rx Last Taken Unknown] ciprofloxacin HCl 500 mg tablet 500 mg PO BID #20 TABLETS 01/26/22 [Rx Last Taken Unknown] metronidazole 500 mg tablet 500 mg PO Q6H #40 tabs 01/26/22 [Rx Last Taken Unknown] omeprazole 20 mg capsule,delayed release 20 mg PO DAILY #30 CAPSULES 05/24/23 [Rx Last Taken Unknown] Allergy/AdvReac Type Severity Reaction Status Date / Time No Known Allergies Allergy Verified 05/24/23 08:23 Surgical History S/P tendon repair Social History Smoking Status: Never smoker ROS ROS ED Constitutional Constitutional ED: Denies chills or fever(s) Eyes Eyes: Denies blurry vision or change in vision ENT ENT ED: Denies rhinorrhea or sore throat Cardiovascular Cardiovascular: Denies chest pain or palpitations Respiratory/Chest Respiratory/Chest: Reports cough; Denies dyspnea Gastrointestinal Gastrointestinal: Reports abdominal pain, diarrhea, melena, nausea and vomiting Genitourinary Genitourinary ED: Denies dysuria or hematuria Musculoskeletal Musculoskeletal: Denies back pain or neck pain Integumentary Denies abscess or rash Neurologic Neurologic: Denies headache(s) or weakness Allergic/Immunologic Allergic/Immunologic ED: Denies mouth swelling or urticaria EXAM Physical Exam Const Vital Signs: 05/24/23 08:23 Temperature 97.6 F L Temperature Source Temporal Pulse Rate 61 Respiratory Rate 16 Blood Pressure 145/88 H Blood Pressure Mean 107 Pulse Ox 97 Oxygen Delivery Method Room Air Positive well nourished and well developed General Appearance ED: well developed and NAD HEENT Reports moist mucous membranes Neck supple and no JVD Resp normal respiratory effort and clear to auscultation bilaterally Cardio regular rate and regular rhythm GI non-tender and non-distended Palpation: soft Neuro CN's II-XII intact bilaterally, moves all extremities and no sensory deficits noted Sensorium / Orientation: alert Motor Exam: strength 5/5 throughout Psych mental status grossly normal MDM MDM MDM Narrative Medical decision making narrative: Differential diagnosis includes diverticulitis, gastrointestinal bleeding, peptic ulcer disease, ureteral calculus, and viral illness. CBC will be obtained to assess for leukocytosis and anemia. Comprehensive metabolic profile will be obtained to assess for hepatic function, renal function, and electrolyte abnormality. Urinalysis will be obtained to assess for urinary tract infection and hematuria. Stool for occult blood will be obtained to assess for gastrointestinal bleeding. Lab Data Attestation: I reviewed the patient's lab results. Lab results narrative: CBC was reviewed and was within normal limits. Comprehensive metabolic profile was reviewed and was within normal limits. Urinalysis was reviewed. There is no evidence of urinary tract infection or hematuria. Stool for occult blood was reviewed and was positive. Labs: Laboratory Results - last 24 hr 05/24/23 05/24/23 09:30 09:35 WBC 7.4 RBC 4.63 Hgb 14.2 Hct 42.6 MCV 92.0 MCH 30.7 MCHC 33.3 RDW Std Deviation 41.5 RDW Coeff of Debbie 12.3 Plt Count 285 MPV 9.6 Immature Gran % (Auto) 0.400 Neut % (Auto) 66.8 Lymph % (Auto) 23.9 [place] % (Auto) 6.8 Eos % (Auto) 1.8 Baso % (Auto) 0.3 Absolute Neuts (auto) 4.9 Absolute Lymphs (auto) 1.76 Nucleated RBC % 0 Sodium 141 Potassium 4.0 Chloride 109 H Carbon Dioxide 28.0 Anion Gap 4 L BUN 14 Creatinine 0.85 Estim Creat Clear Calc 150.43 Est GFR (MDRD) Af Amer 139 Est GFR (MDRD) Non-Af 115 BUN/Creatinine Ratio 16.5 Glucose 107 H Calcium 9.2 Total Bilirubin 0.60 AST 21 ALT 27 Alkaline Phosphatase 72 Total Protein 7.9 Albumin 4.1 Globulin 3.8 Albumin/Globulin Ratio 1.1 Urine Color Yellow Urine Clarity Clear Urine pH 7.0 Ur Specific [place] 1.010 Urine Protein 30 H Urine Glucose (UA) Normal Urine Ketones Negative Urine Occult Blood Negative Urine Nitrite Negative Urine Bilirubin Negative Urine Urobilinogen 1 H Ur Leukocyte Esterase 25 H Urine RBC 0 SEEN Urine WBC 0-5 SEEN Ur Squamous Epith Cells 0-5 SEEN Urine Bacteria 0 SEEN Urine Mucus 0 SEEN Treatment and Re-Evaluation :: Patient was given IV fluids. Patient was feeling better on reevaluation. Patient was advised of his findings. Patient was instructed to eat a bland diet. Patient [facility] Patient was instructed to follow-up with him in 3 to 5 days. Patient was given a prescription for omeprazole. Patient was instructed to return if worse in any way. Patient understood and was agreeable with the plan. All questions were answered. Discharge Plan Triage Chief Complaint: Abd Pain ED Provider: Jamir Mccormack Dx/Rx/DC Orders Clinical Impression: Gastritis, Upper gastrointestinal bleeding Instructions: ED Gastritis (Adult), ED Upper GI Bleeding (Stable) Prescriptions: New omeprazole [omeprazole] 20 mg capsule,delayed release(DR/EC) 20 mg PO DAILY Qty: 30 0RF No Action ibuprofen 600 MG tablet 600 mg PO Q6H PRN PRN (Reason: Pain 1-10 Or Fever) Qty: 20 0RF metronidazole [metronidazole] 500 mg tablet 500 mg PO Q6H Qty: 40 0RF ciprofloxacin HCl [ciprofloxacin HCl] 500 mg tablet 500 mg PO BID Qty: 20 0RF Primary Care Provider[facility] [facility] [Primary [facility] Provider[facility] - 3-5 Days Disposition Disposition: Home, Self Care
[2023-05-24] MEDS: 0.9% Normal Saline (1000mL) 1,000 ML 1000 ML IV (09:30)
[2023-05-24 09:35] LABS: Bacteria 0 SEEN /hpf (None Seen); Mucous, Urine 0 SEEN /hpf (<or=2+); Red Blood Cells-Urine 0 SEEN /hpf (0-5)
[2023-05-24 09:42] LABS: Absolute Lymphocyte Count 1.76 X10^3/uL (0.83-4.51); Absolute Neutrophil Count 4.9 X10^3/uL (2.0-7.7); Basophil# 0.02 X10^3/uL; Basophil% 0.3 % (0-1); Eosinophil# 0.13 X10^3/uL; Eosinophils% 1.8 % (0-5); Hematocrit 42.6 % (40-54); Hemoglobin 14.2 g/dL (13.0-16.5); Lymphocyte # 1.76 X10^3/ul (0.83-4.51); Lymphocyte % 23.9 % (19-41); Mean Corp Hgb Conc 33.3 g/dL (32-36); Mean Corpuscular Hgb 30.7 pg (27.0-32.0); Mean Platelet Vol. 9.6 fl (6.2-12.0); Monocyte% 6.8 % (0-10); NRBC Flagged by Analyzer 0 % (0-5); Neutrophil # 4.92 X10^3/uL (2.7-7.7); Neutrophil % 66.8 % (47-70); Platelet Count 285 K/mm3 (150-450); RBC Distribution Width CV 12.3 % (11.6-14.6); RBC Distribution Width SD 41.5 fl (35.1-43.9); Red Blood Count 4.63 M/mm3 (4.6-6.2); White Blood Count 7.4 K/mm3 (4.4-11.0)
[2023-05-24 09:46] LABS: Color, Urine Yellow (Yellow); Glucose, Dipstick Normal (Normal); Ketone-Dipstick Negative (Negative); Leukocyte Esterase-Dipstick 25 /ul (Negative); Nitrite-Dipstick Negative (Negative); Occult Blood-Urine Negative /ul (Negative); Protein-Dipstick 30 mg/dl (Negative); Urine Bilirubin Dipstick Negative (Negative); Urine Clarity Clear (Clear); Urine Urobilinogen 1 mg/dl (Normal)
[2023-05-24 09:55] LABS: ALB/GLOB Ratio 1.1 RATIO (0.9-2.4); AST(SGOT) 21 U/L (15-37); Alanine Aminotransfer ALT/SGPT 27 U/L (16-61); Albumin, Serum 4.1 g/dL (3.2-5.0); Alkaline Phosphatase 72 U/L (45-117); Anion Gap 4 (5-15); BUN 14 mg/dL (7-18); BUN/Creat Ratio 16.5 RATIO (10-20); Calcium,Total 9.2 mg/dL (8.5-10.1); Chloride 109 mmol/L (98-107); Creatinine, Serum 0.85 mg/dL (0.70-1.30); EST Glomerular Filtration Rate 115 mL/min (>60); Est Glom Filt Rate - Afr Amer 139 mL/min (>60); Estimated Creatinine Clearance 150.43 ml/min; Globulin 3.8 g/dL (2.2-4.2); Glucose 107 mg/dL (74-106); Protein, Total 7.9 g/dL (6.4-8.2); Sodium Level 141 mmol/L (136-145)
[2023-05-24 10:07] LABS: Squamous Epithelial Cells - UA 0-5 SEEN /hpf (0-5); White Blood Cells 0-5 SEEN /hpf (0-5)
--- OUTSIDE RECORDS SUMMARY | 2023-05-24 10:35 | XMS RPT_ITS | CCD ---
Author Name Unknown Address [address] [place] [address] Organization [facility] Care Team Providers Care Vision Impaired Teacher Name Role Phone PROVIDER, UNKNOWN Unavailable Unavailable PROVIDER, UNKNOWN Unavailable Unavailable July Attending Unavailable July Primary Care Unavailable July Admitting Unavailable [place] [facility] Primary Care Physician [place] [facility] Primary Care Physician [phone] CAROLYN LARA MD Attending Unavail able [place] [facility] Primary Care Unavailable LYLE BAUM Attending Unavailable [place] [facility] Primary Care Unavailable AMAYA HERCULES Attending Unavailable [place] Primary Care Unavailable REFERRING REFERRING, NEREIDA SOLANO Attending Unavailable [place] [facility] Primary Care Unavailable [facility], [facility] [place] [facility] Provider MD [facility] Attending Unavailable [facility], [facility] e Unavailable Medications Current Medications Medication Drug Class(es) Dates Sig (Normalized) Sig (Original) amoxicillin 875 mg oral tablet (1 source) Penicillin-class Antibacterial Start: 05-13-2022 End: 05-23-2022 amoxicillin 875 mg oral tablet Dose : 875 mg = 1 tab(s), Oral, q12h, X 10 day(s), # 20 tab(s), 0 Refill(s), 05/23/22 5:11:00 EST, Pharyngitis Start Date: 05/13/22 Stop Date: 05/23/22 Status: Ordered hydrocortisone 25 mg/ml topical cream (1 source) Corticosteroid Start: 08-13-2021 End: 08-20-2021 Anusol-HC 2.5% rectal cream with applicator Apply 1 fantasma, Rectal, BID, X 7 day(s), # 30 gram(s), 0 Refill(s), 93.5 Start Date: 08/13/21 Stop Date: 08/20/21 Status: Ordered Misc Medication (4 sources) Start: 06-16-2021 Misc Medication 0 Refill(s), 98 Start Date: 06/16/21 Status: Ordered ondansetron 4 mg oral tablet (4 sources) Serotonin-3 Receptor Antagonist Start: 06-12-2019 Zofran 4 mg oral tablet Dose : 4 mg = 1 tab(s), Oral, q6h, PRN nausea, # 12 tab(s), 0 Refill(s) Start Date: 06/12/19 Status: Ordered tobramycin 3 mg/ml ophthalmic solution (1 source) Aminoglycoside Antibacterial Start: 06-24-2022 Tobramycin (Tobrex) 0.3 % drops Active 2 DROPS OPTH 3 Times a Day 5 June 24, 2022 12:00am Problems Problem Classification Problem Date Documented Da te Episodic/Chronic Anal and rectal conditions (1 source) Anorectal disorder; Translations: [Other specified diseases of anus and rectum] Onset: 08-13-2021 Episodic Crushing injury or internal injury (1 source) Crushing injury of finger; Translations: [Crushing injury of right ring finger, initial encounter] Onset: 06-16-2021 Episodic Open wounds of extremities (1 source) Laceration of finger without foreign body; Translations: [Laceration without foreign body of right ring finger without damage to nail, initial encounter] Onset: 06-16-2021 Episodic Other injuries and conditions due to external causes (1 source) Corneal foreign body; Translations: [Foreign body in cornea, unspecified eye, initial encounter] 06-24-2022 Episodic Other skin disorders (4 sources) Eruption 12-01-2013 Episodic Other upper respiratory infections (1 source) Acute pharyngitis; Translations: [Acute pharyngitis, unspecified] Onset: 05-13-2022 Episodic Superficial injury; contusion (1 source) Corneal abrasion; Translations: [Injury of conjunctiva and corneal abrasion without foreign body, unspecified eye, initial encounter] 06-24-2022 Episodic Unclassified (4 sources) None (qualifier value) 12-01-2013 Results Test Name Value Interpretation Reference Range Facil ity Vital Signs Date Time Vital Sign Value Performing Clinician Lexus gonzales 06-24-2022 09:11-0400 Body height 187.96 cm [facility] [place] [facility] Work Phone: [facility] 06-24-2022 09:11-0400 Body weight 90.72 kg [facility] [place] [facility] Work Phone: [facility] 06-24-2022 08:35-0400 Body temperature 98 [degF] [facility] [place] [facility] Work Phone: [facility] 06-24-2022 08:35-0400 Diastolic blood pressure 66 mm[Hg] [facility] [place] [facility] Work Phone: [facility] 06-24-2022 08:35-0400 Heart rate 54 /min [facility] [place] [facility] Work [facility]: [facility] 06-24-2022 08:35-0400 Respiratory rate 16 /min [facility] [place] [facility] Work Phone: [facility] 06-24-2022 08:35-0400 SaO2% (BldA) [Mass fraction] 98 % [facility] [place] [facility] Work Phone: [facility] 06-24-2022 08:35-0400 Systolic blood pressure 141 mm[Hg] [facility] [place] [facility] Work Phone: [facility] 05-13-2022 04:55-0500 Body height 188 cm LYLE GILBERTOFred [employer] [facility] 05-13-2022 04:55-0500 Body temperature 98.06 [degF] [facility] [employer] [facility] 05-13-2022 04:55-0500 Body weight 93.2 kg LYLE BAUM DO [facility] 05-13-2022 04:55-0500 Diastolic Blood Pressure Non-Invasive 72 1 LYLE BAUM DO [facility] 05-13-2022 04:55-0500 Heart rate 100 /min LYLE BAUM DO [facility] 05-13-2022 04:55-0500 Respiratory rate 20 /min LYLE BAUM DO [facility] 05-13-2022 04:55-0500 Systolic Blood Pressure Non-Invasive 121 1 LYLE BAUM DO [facility] 08-13-2021 04:44-0400 Body height 188 cm CAROLYN LARA MD [facility] 08-13-2021 04:44-0400 Body temperature 97.88 [degF] CAROLYN LARA MD [facility] 08-13-2021 04:44-0400 Body weight 93.5 kg CAROLYN LARA MD [facility] 08-13-2021 04:44-0400 Diastolic blood pressure 91 mm[Hg] CAROLYN LARA MD [facility] 08-13-2021 04:44-0400 Heart rate 84 /min CAROLYN LARA MD [facility] 08-13-2021 04:44-0400 Respiratory rate 18 /min CAROLYN LARA MD [facility] 08-13-2021 04:44-0400 Systolic blood pressure 144 mm[Hg] CAROLYN LARA MD [facility] 06-16-2021 14:03-0500 Body temperature 98.42 [degF] AMAYA HERCULES MD [facility] 06-16-2021 14:03-0500 Diastolic blood pressure 90 mm[Hg] AMAYA HERCULES MD [facility] 06-16-2021 14:03-0500 Heart rate 82 /min AMAYA HERCULES MD [facility] 06-16-2021 14:03-0500 Mean blood pressure 112 mm[Hg] AMAYA HERCULES MD [facility] 06-16-2021 14:03-0500 Respiratory rate 16 /min AMAYA HERCULES MD [facility] 06-16-2021 14:03-0500 Systolic blood pressure 155 mm[Hg] AMAYA HERCULES MD [facility] Encounters Encounter Date Encounter Type Care Provider Facility Start: 06-24-2022 End: 06-24-2022 [facility] Start: 06-24-2022 End: 06-24-2022 Emergency department patient visit [facility]i [facility] Work Phone: [facility] Start: 05-13-2022 End: 05-13-2022 Emergency department patient visit LYLE BAUM Facility:B Start: 05-13-2022 End: 05-13-2022 Emergency department patient visit LYLE BAUM DO [facility] Start: 03-09-2022 End: 03-10-2022 ambulatory PHY PHY WO ID REFERRING REFERRING Facility:A Start: 03-09-2022 End: 03-09-2022 Patient encounter procedure PHY WO ID REFERRING [facility] Start: 08-13-2021 End: 08-13-2021 Emergency department patient visit CAROLYN LARA MD Facility:B Start: 08-13-2021 End: 08-13-2021 Emergency department patient visit CAROLYN LARA MD [facility] Start: 06-16-2021 End: 06-16-2021 Emergency department patient visit AMAYA HERCULES Facility:B Start: 06-16-2021 End: 06-16-2021 Emergency department patient visit AMAYA HERCULES MD [facility] Start: 09-29-2020 End: 09-29-2020 ambulatory JULY [facility] Start: 11-07-2017 Patient encounter UNKNOWN PROVIDER F acility:[facility] Procedures Date Procedure Procedure Detail Performing Clinician None (qualifier value) WALDO HERCULES MD Plan of Treatment Date Care Activity Detail Author Patient Education Corneal Abrasi on (DC) Foreign Body in Eye (DC) [facility] Work Phone: Patient referral [facility] Work Phone: Immunizations Immunization Date Immunization Notes Care Provider Fa rjty 06-16-2021 tetanus toxoid, redu ken diphtheria toxoid, and acellular pertussis vaccine, adsorbed; Translations: [Boostrix (Tdap)] AMAYA HERCULES MD [facility] Payers Date Payer Category Payer Self-pay 2021 Unknown [id number] 1995 Unknown [id number] [id number] 1995 Unknown [id number] [id number] 1995 Unknown [id number] [id number] 1995 Unknown [id number] [id number] [id number] 1995 Unknown [id number] 2.16.8 [id number] Unknown [id number] 2.16.8 [id number] Social History Date Type Detail Facility Tobacco Tobacco Use: Antonette w. Ready to change: Yes. Refused smoking cessation information Smoking Cessation Information. [facility] Ex-smoker (finding) [facility] Assigned At [facility] Start: 06-24-2022 Tobacco smoking stat us [facility] Smokes tobacco daily (finding) [facility] Start: 06-24-2022 Yes [facility] Start: 1995 Sex Assigned At Male [facility] Functional Status Date Assessment Result Facility 06-24-2022 Functional status Family;Friend [facility] Work Phone: 05-13-2022 Functional Status Room check performed [facility] 08-13-2021 Functional Status [facility] Mental Status Date Assessment Result Facility 05-13-2022 Mental Status Oriented x 4 [facility] 08-13-2021 Mental Status [facility] Clinical Notes 06-16-2021 to 06-21-2022 Note Date & Type Note Facility 06-21-2022 Hospital Discharg e instructions Additional Instructions Tobrex ophthalmic drops 4 times per day for 3 days. Follow-up with Dr. Lucia Tuesday if not completely better. Return for worsening symptoms or concerns. [facility] Work Phone: 05-13-2022 Hospital Discharg e instructions Patient Education 05/13/2022 05:11:30 Pharyngitis, Report Pending Pharyngitis (Sore Throat), Report Pending Pharyngitis (sore throat) is often due to a virus. It can also be caused by streptococcus (strep), bacteria. This is often called strep throat. Both viral and strep infections can cause throat pain that is worse when swallowing, aching all over, headache, and fever. Both types of infections are contagious. They may be spread by coughing, kissing, or touching others after touching your mouth or nose. A test has been done to find out if you or your child have strep throat. Call this facility or your healthcare provider if you were not given your test results. If the test is positive for strep infection, you will need to take antibiotic medicines. A prescription can be called into your pharmacy at that time. If the test is negative, you probably have a viral pharyngitis. This does not need to be treated with antibiotics. Until you receive the results of the strep test, you should stay home from work. If your child is being tested, he or she should stay home from school. Home care Rest at home. Drink plenty of fluids so you won't get dehydrated. If the test is positive for strep, you or your child should not go to work or school for the first 2 days of taking the antibiotics. After this time, you or your child will not be contagious. You or your child can then return to work or school when feeling better. Use the antibiotic medicine for the full 10 days. Do not stop the medicine even if you or your child feel better. This is very important to make sure the infection is fully treated. It is also important to prevent medicine-resistant germs from growing. If you or your child were given an antibiotic shot, no more antibiotics are needed. Use throat lozenges or numbing throat sprays to help reduce pain. Gargling with warm salt water will also help reduce throat pain. Dissolve 1/2 teaspoon of salt in 1 glass of warm water. Children can sip on juice or a popsicle. Children 5 years and older can also suck on a lollipop or hard candy. Don't eat salty or spicy foods or give them to your child. These can irritate the throat. Other medicine for a child: You can give your child acetaminophen for fever, fussiness, or discomfort. In babies over 6 months of age, you may use ibuprofen instead of acetaminophen. If your child has chronic liver or kidney disease or ever had a stomach ulcer or GI bleeding, talk with your child s healthcare provider before giving these medicines. Aspirin should never be used by any child under 18 years of age who has a fever. It may cause severe liver damage. Other medicine for an adult: You may use acetaminophen or ibuprofen to control pain or fever, unless another medicine was prescribed for this. If you have chronic liver or kidney disease or ever had a stomach ulcer or GI bleeding, talk with your healthcare provider before using these medicines. Follow-up care Follow up with your healthcare provider or our staff if you or your child don't get better over the next week. When to seek medical advice Call your healthcare provider right away if any of these occur: Fever as directed by your healthcare provider. For children, seek care if: oYour child is of any age and has repeated fevers above 104 F (40 C). oYour child is younger than 2 years of age and has a fever of 100.4 F (38 C) for more than 1 day. oYour child is 2 years old or older and has a fever of 100.4 F (38 C) for more than 3 days. New or worsening ear pain, sinus pain, or headache Painful lumps in the back of neck Stiff neck Lymph nodes are getting larger Can t swallow liquids, a lot of drooling, or can t open mouth wide due to throat pain Signs of dehydration, such as very dark urine or no urine, sunken eyes, dizziness Trouble breathing or noisy breathing Muffled voice New rash Other symptoms getting worse Prevention Here are steps you can take to help prevent an infection: Keep good hand washing habits. Don t have close contact with people who have sore throats, colds, or other upper respiratory infections. Don t smoke, and stay away from secondhand smoke. Stay up to date with of your vaccines. 3490-0622 [employer]. [address] [place] [address]. All rights reserved. This information is not intended as a substitute for professional medical care. Always follow your healthcare professional's instructions. Follow Up Care 05/13/2022 04:48:46 With:[facility] Address: [address] [place] [address] [place] [address]- When:2-4 days [facility] 05-13-2022 Note Discharge Instructions Thank you for allowing [facility] to assist you with your healthcare needs. The following is important discharge information regarding your hospital visit. Diagnosis from Today's Visit Pharyngitis Sore throat - Adult What to Do Next Instructions from Your Care Team No qualifying data available. Post Acute Orders No qualifying data available. You Need to Schedule the Following Appointments Follow Up with [facility] When Within 2-4 days Where: [address] [place] [address] [place] [address]- Allergies [facility]A Medications Please ask your primary doctor or pharmacist before taking any other medication not listed, including over the counter drugs, herbal medications, vitamins and or supplements as they may interact with your home medications. What How Much When Why Instructions Last Dose New amoxicillin (amoxicillin 875 mg oral tablet) 1 tab(s) by mouth Every 12 hours Pharyngitis Duration: 10 Days Printed Prescription Unchanged Misc Medication Unchanged ondansetron (Zofran 4 mg oral tablet) 1 tab(s) by mouth Every 6 hours PRN nausea Please take this list to your next doctor s visit. Bring all medications you take, including over the counter medications, herbals and other supplements with you to your doctor s visit. Patients and families are reminded to discard old lists and to update any records with all medication providers or retail pharmacies. Education Materials Pharyngitis (Sore Throat), Report Pending Pharyngitis (sore throat) is often due to a virus. It can also be caused by streptococcus (strep), bacteria. This is often called strep throat. Both viral and strep infections can cause throat pain that is worse when swallowing, aching all over, headache, and fever. Both types of infections are contagious. They may be spread by coughing, kissing, or touching others after touching your mouth or nose. A test has been done to find out if you or your child have strep throat. Call this facility or your healthcare provider if you were not given your test results. If the test is positive for strep infection, you will need to take antibiotic medicines. A prescription can be called into your pharmacy at that time. If the test is negative, you probably have a viral pharyngitis. This does not need to be treated with antibiotics. Until you receive the results of the strep test, you should stay home from work. If your child is being tested, he or she should stay home from school. Home care Rest at home. Drink plenty of fluids so you won't get dehydrated. If the test is positive for strep, you or your child should not go to work or school for the first 2 days of taking the antibiotics. After this time, you or your child will not be contagious. You or your child can then return to work or school when feeling better. Use the antibiotic medicine for the full 10 days. Do not stop the medicine even if you or your child feel better. This is very important to make sure the infection is fully treated. It is also important to prevent medicine-resistant germs from growing. If you or your child were given an antibiotic shot, no more antibiotics are needed. Use throat lozenges or numbing throat sprays to help reduce pain. Gargling with warm salt water will also help reduce throat pain. Dissolve 1/2 teaspoon of salt in 1 glass of warm water. Children can sip on juice or a popsicle. Children 5 years and older can also suck on a lollipop or hard candy. Don't eat salty or spicy foods or give them to your child. These can irritate the throat. Other medicine for a child: You can give your child acetaminophen for fever, fussiness, or discomfort. In babies over 6 months of age, you may use ibuprofen instead of acetaminophen. If your child has chronic liver or kidney disease or ever had a stomach ulcer or GI bleeding, talk with your child s healthcare provider before giving these medicines. Aspirin should never be used by any child under 18 years of age who has a fever. It may cause severe liver damage. Other medicine for an adult: You may use acetaminophen or ibuprofen to control pain or fever, unless another medicine was prescribed for this. If you have chronic liver or kidney disease or ever had a stomach ulcer or GI bleeding, talk with your healthcare provider before using these medicines. Follow-up care Follow up with your healthcare provider or our staff if you or your child don't get better over the next week. When to seek medical advice Call your healthcare provider right away if any of these occur: Fever as directed by your healthcare provider. For children, seek care if: oYour child is of any age and has repeated fevers above 104 F (40 C). oYour child is younger than 2 years of age and has a fever of 100.4 F (38 C) for more than 1 day. oYour child is 2 years old or older and has a fever of 100.4 F (38 C) for more than 3 days. New or worsening ear pain, sinus pain, or headache Painful lumps in the back of neck Stiff neck Lymph nodes are getting larger Can t swallow liquids, a lot of drooling, or can t open mouth wide due to throat pain Signs of dehydration, such as very dark urine or no urine, sunken eyes, dizziness Trouble breathing or noisy breathing Muffled voice New rash Other symptoms getting worse Prevention Here are steps you can take to help prevent an infection: Keep good hand washing habits. Don t have close contact with people who have sore throats, colds, or other upper respiratory infections. Don t smoke, and stay away from secondhand smoke. Stay up to date with of your vaccines. 6918-2920 [employer]. [address] [place] [address], [place] [address]. All rights reserved. This information is not intended as a substitute for professional medical care. Always follow your healthcare professional's instructions. Additional Information VACCINATE! IT SAVES LIVES! Members of the community who have not yet received the COVID-19 vaccine and would like to receive it can visit one of [facility] vaccine clinics. There are many vaccine clinic locations within the [facility]. For locations and available times, please visit [email or web address]. It is important to note that some COVID mobile vaccine clinics are held outdoors and may be canceled in rainy or stormy conditions. To learn more about pediatric vaccinations (ages 5-11), we invite you to visit the [facility] webpage. [email or web address] To learn more about the COVID-19 vaccine, we invite you to visit the [facility] website for a list of frequently asked questions. [email or web address] [facility] Patient Portal Access Instructions: Stay connected with your healthcare team and access your personal medical information anytime with the [facility] Patient Portal. If you would like a full copy of your medical records please contact the [facility] Medical Records Department Tuesday through Tuesday between 8a.m. and 4:30p.m. Please follow the directions below to access the portal: 1.Access the email account you provided upon registration to the hospital.2.Look for an invitation email from [facility].3.Open the email and access the invitation link: Accept Invitation to [facility]4.Fill in the required clay to create your account. Sign into www.[employer] with your username and password that you created in the above steps to stay up to date. You can then view a summary of results, a summary of your visits, and the ability to download your summaries to your computer or send the information securely to a physician. Remember that your healthcare information is confidential, so carefully consider who you will allow to register on the [facility] Patient Portal for access to your information. You can also access the [facility] Patient Portal on the [employer] fantasma. Simply click on Health Records under Health Data and then click on the [facility] logo. HOW TO SAFELY DISPOSE OF PRESCRIPTION MEDICATIONS Please use one of the following methods to safely dispose of your unused medications. 1.Use a drug disposal kit: the drug disposal pouch allows you to safely discard your old and unused drugs. Ask your nurse to give you one when you are discharged.2.Visit a local take-back location: Many local pharmacies and police departments have programs that collect old and unwanted prescription drugs. Call your local pharmacy or go to http://SageCloud.IntY/7E4Vm0q to find one close to you.3.Make use of household items: Use cat litter or old coffee grounds to dispose medications if other options are not available. Mix your drugs with these household products, seal them in an airtight container and throw it into the garbage. Call [facility]: [phone] to be sure your drugs can be disposed of in this way. Some medicines may require a different approach.4.Never flush your medications down the toilet. IF YOU HAVE BEEN PRESCRIBED AN OPIOIDS FOR PAIN If you have been prescribed an opioid (such as hydrocodone, oxycodone or morphine), it is critical to understand the possible side effects and risks of opioid pain medications. Even when taken as directed, opioids can have several side effects including: Tolerance, meaning you might need to take more of a medication for the same pain relief. Nausea, vomiting and/or constipation. Sleepiness, dizziness, dry mouth, confusion, depression or itching. Physical dependence, meaning you have withdrawal symptoms when a medication is stopped ? this can develop within a few days. KNOW YOUR RESPONSIBILITIES It is important to know exactly how much and how often to take the opioid pain medications you are prescribed. Never take opioids in higher amounts or more often than prescribed. Do not combine opioids with alcohol or other drugs that cause drowsiness, such as benzodiazepines, also known as benzos, including diazepam and alprazolam, muscle relaxants or sleep aids. Never sell or share prescription opioids. This is illegal. Store opioids in a secure place and out of reach of others (including children, family, friends and visitors). The last page(s) of this document has been signed and retained as a CHART COPY Signatures Patient Education Materials Pharyngitis, Report Pending Medication Leaflets My discharge plan and instructions have been reviewed and explained to me and IJOHN PAUL CODY R understand my current condition and have read and understand these discharge instructions. I have received a written copy of the plan/instructions. If I have questions, I am aware that I should contact my doctor. Patient/Bingo Clerk Signature: Date/Time: Relationship to Patient: Witness Name/Signature: Date/Time: [facility] 03-09-2022 Note ORIGINAL EXAMINATION: ULTRASOUND OF THE SCROTUM/TESTICLES WITH COLOR DOPPLER FLOW OQDFOUELQR75/29/2022 1:31 pm TECHNIQUE: Duplex ultrasound using B-mode/lo scaled imaging, Doppler spectral analysis and color flow Doppler was obtained of the testicles. COMPARISON: None. HISTORY: ORDERING SYSTEM PROVIDED HISTORY: Reason for Exam: Left testicular pain 10-11 days in duration. FINDINGS: The size and echogenicity of the testicles are within normal limits and similar bilaterally. The right and left testes measure 5.5 x 3.8 x 2.6 cm and 5.2 x 3.8 x 2.5 cm, respectively. No focal nor diffuse abnormalities are seen. Color Doppler flow is seen in both testicles in a symmetric fashion. Spectral waveform analysis of the testicles shows low resistance arterial waveforms on both sides. Prominent serpiginous vessels seen adjacent to inferior pole of the left testis with increased vascularity with Valsalva maneuver. The epididymides are normal. No significant hydrocele on either side. IMPRESSION: Likely small left varicocele. No other significant finding.. The right and left testes and epididymides are unremarkable. I have personally reviewed the images of this examination and agree with the resident's findings and interpretation. Interpreted by: Nikhil Loja MD Preliminary Report By: Steve Jose Electronically signed By Nikhil Loja MD Dictated Date: 03/09/2022 4:21:52 PM Prelim Date: 03/09/2022 5:15:37 PM Sign Date: 03/09/2022 5:15:37 PM Ordering Provider: NEREIDA REFERRING [facility] 03-09-2022 Note ORIGINAL EXAMINATION: ULTRASOUND OF THE SCROTUM/TESTICLES WITH COLOR DOPPLER FLOW EFARECTAKO11/29/2022 1:31 pm TECHNIQUE: Duplex ultrasound using B-mode/lo scaled imaging, Doppler spectral analysis and color flow Doppler was obtained of the testicles. COMPARISON: None. HISTORY: ORDERING SYSTEM PROVIDED HISTORY: Reason for Exam: Left testicular pain 10-11 days in duration. FINDINGS: The size and echogenicity of the testicles are within normal limits and similar bilaterally. The right and left testes measure 5.5 x 3.8 x 2.6 cm and 5.2 x 3.8 x 2.5 cm, respectively. No focal nor diffuse abnormalities are seen. Color Doppler flow is seen in both testicles in a symmetric fashion. Spectral waveform analysis of the testicles shows low resistance arterial waveforms on both sides. Prominent serpiginous vessels seen adjacent to inferior pole of the left testis with increased vascularity with Valsalva maneuver. The epididymides are normal. No significant hydrocele on either side. IMPRESSION: Likely small left varicocele. No other significant finding.. The right and left testes and epididymides are unremarkable. I have personally reviewed the images of this examination and agree with the resident's findings and interpretation. Interpreted by: Nikhil Loja MD Preliminary Report By: Steve Jose Electronically signed By Nikhil Ljoa MD Dictated Date: 03/09/2022 4:21:52 PM Prelim Date: 03/09/2022 5:15:37 PM Sign Date: 03/09/2022 5:15:37 PM Ordering Provider: NEREIDA REFERRING [facility] 08-13-2021 Hospital Discharg e instructions Patient Education 08/13/2021 05:05:49 Hemorrhoids Hemorrhoids Hemorrhoids are swollen and inflamed veins inside the rectum and near the anus. The rectum is the last several inches of the colon. The anus is the passage between the rectum and the outside of the body. Causes The veins can become swollen due to increased pressure in them. This is most often caused by: Chronic constipation or diarrhea Straining when having a bowel movement Sitting too long on the toilet A low-fiber diet Symptoms Bleeding from the rectum (this may be noticeable after bowel movements) Lump near the anus Itching around the anus Pain around the anus There are different types of hemorrhoids. Depending on the type you have and the severity, you may be able to treat yourself at home. In some cases, a procedure may be the best treatment option. Your healthcare provider can tell you more about this, if needed. Home care General care To get relief from pain or itching, try: oMedicines. Your healthcare provider may recommend stool softeners, suppositories, or laxatives to help manage constipation. Use these exactly as directed. oSitz baths. A sitz bath involves sitting in a few inches of warm bath water. Be careful not to make the water so hot that you burn yourself test it before sitting in it. Soak for about 10 to 15 minutes a few times a day. This may help relieve pain. oTopical products. Your healthcare provider may prescribe or recommend creams, ointments, or pads that can be applied to the hemorrhoid. Use these exactly as directed. Tips to help prevent hemorrhoids Eat more fiber. Fiber adds bulk to stool and absorbs water as it moves through your colon. This makes stool softer and easier to pass. oIncrease the fiber in your diet with more fiber-rich foods. These include fresh fruit, vegetables, and whole grains. oTake a fiber supplement or bulking agent, if advised by your healthcare provider. These include products such as psyllium or methylcellulose. Drink more water. Your healthcare provider may direct you to drink plenty of water. This can help keep stool soft. Be more active. Frequent exercise aids digestion and helps prevent constipation. It may also help make bowel movements more regular. Don t strain during bowel movements. This can make hemorrhoids more likely. Also, don t sit on the toilet for long periods of time. Follow-up care Follow up with your healthcare provider as advised. If a culture or imaging tests were done, someone will let you know the results when they are ready. This may take a few days or longer. If your healthcare provider recommends a procedure for your hemorrhoids, these options can be discussed. Options may include surgery and outpatient office treatments. When to seek medical advice Call your healthcare provider right away if any of these occur: Increased bleeding from the rectum Increased pain around the rectum or anus Weakness or dizziness Call 911 Call 911 if any of these occur: Trouble breathing or swallowing Fainting or loss of consciousness Unusually fast heart rate Vomiting blood Large amounts of blood in stool or black, tarry stools [id number] [employer]. [address] [place] [address], [place] [address]. All rights reserved. This information is not intended as a substitute for professional medical care. Always follow your healthcare professional's instructions. Follow Up Care 08/13/2021 04:42:37 [place] Address: [address] [place] [address] [place] [id number]- When:2-4 days [facility] 06-16-2021 Hospital Discharg e instructions Patient Education 06/16/2021 15:33:52 Splints and Casts Splints and Casts Splints and casts are used to help support and protect many bone and soft tissue injuries. They keep an injured area from moving. Both splints and casts can help fix broken bones and other injuries or conditions by: Increasing blood supply to the injured area Limiting movement to help decrease pain Keeping the area stable to help prevent further injury Decreasing swelling or muscle spasm Splints don t fully enclose an injured area. This makes them ideal to use for many acute or sudden injuries where swelling is likely to occur. This includes acute fractures or sprains. Splints help to ease pain, protect fractures, and keep an injured area from moving before any orthopedic treatment is done. Casts fully enclose an injured area in either plaster or fiberglass. Because of this, they are better able to keep the injured area still and hold it in place. But casts can also have more problems. For the best results, both casts and splints are mainly used only for a short time. That s because keeping an area still for too long can cause problems such as joint stiffness and long-lasting (chronic) pain. If you are put in a splint or cast, you must be watched closely to be sure you recover correctly. There are many different kinds of splints and casts. Your healthcare provider will decide which is best for you. This will depend on the area of your body that is being treated. It will also depend on the stage of your injury, as well as how severe and how stable it is. Each type of splint and cast is best suited for certain conditions. There are also different ways of applying splints and casts. Home care Follow your healthcare provider s instructions when using the splint or cast. Always ask when the splint or cast must be worn. Always ask when the splint or cast can be removed. Check the splint or cast each day, and as needed, for any loose objects. Check the splint or cast for defects such as nicks or tears. Follow the ampoule examiner's or provider s instructions on how to clean the splint or cast. It may have fabric areas that can be washed. If the splint or cast has straps, tighten the straps if they get loose. The straps should feel firm and secure, but not too tight. The splint or cast should feel comfortable. Your toes should wiggle freely. The provider may also use an elastic bandage. Follow the provider s instructions on how to use the elastic bandage. Always ask when to use the elastic bandage with, or without, the splint or cast. Always ask when the elastic bandage needs to be worn. Always ask when the elastic bandage needs to be removed. Check how the injured area is healing. Always check the skin around the injury for irritation or damage caused by the splint or cast. Call your provider if you notice any problems or have any concerns. If you have any questions on how to use the splint or cast, contact your provider. Follow-up care Follow up as advised with your healthcare provider. Depending on the injury, you may need to see an orthopedic or bone doctor. You may also need physical therapy to further check or treat your injury or condition. When to seek medical advice Call your healthcare provider right away if any of these occur: You have more pain, swelling, or instability when wearing the splint or cast. Your injured area has skin that changes color (to red, blue, or purple), sores, blisters, infection, or irritation. The injured region feels cool to the touch. Or you have a numb and tingly feeling when wearing the splint or cast. The splint or cast does not fit correctly. You can t put weight on the injured area when wearing the splint or cast if you are allowed to do so. You have questions about using the splint or cast. The splint or cast gets wet. [id number] [employer]. [address] [place] [address], [place] [address]. All rights reserved. This information is not intended as a substitute for professional medical care. Always follow your healthcare professional's instructions. 06/16/2021 14:18:33 Wound Care Wound Care Taking proper care of your wound will help it heal. Your healthcare provider may show you how to clean and dress the wound. He or she will also explain how to tell if the wound is healing normally. If you are unsure of how to take care of the wound, be sure to clarify what dressing to use and how often you should change the bandages. Here are the basic steps. A wound that's not healing normally may be dark in color or have white streaks. Wash your hands Tips for washing your hands include: Use liquid soap and lather for 2 minutes. Scrub between your fingers and under your nails. Rinse with warm water, keeping your fingers pointing down. Use a paper towel to dry your hands and to turn off the faucet. Remove the used dressing Here are suggestions for removing the dressing: If dressing changes cause you pain, be sure to take your pain medicine as prescribed by your healthcare provider 30 minutes before dressing changes. Set up your supplies. Put on disposable gloves if you re dressing a wound for someone else or your wound is infected. Loosen the tape by pulling gently toward the wound. Gently take off the old dressing. If the dressing is stuck to the wound, moisten it with saline (if available) or clean water. If you have a drain or tube in the wound, be careful not to pull on it. Remove the dressing 1 layer at a time and put it in a plastic bag. Seal the bag and put it in the trash. Remove your gloves. Inspect and dress the wound Check the wound carefully: Each time you change the dressing, check the wound carefully to be sure it s healing normally by making sure your wound appears to be pink and moist, and is free of infection. Wash your hands again. Put on a new pair of gloves. Clean and dress the wound as directed by your healthcare provider or nurse. Don't put anything in the wound that is not prescribed or directed by your healthcare provider. If you have a drain or tube, be careful not to pull on it. Make sure to secure the drain or tube as well. Put all unused supplies in a clean plastic bag. Seal the bag and store it in a clean, dry area between dressing changes. Be sure to wash your hands again. Call your healthcare provider Call your healthcare provider if you see any of the following signs of a problem: Bleeding that soaks the dressing Roundup fluid weeping from the wound Increased drainage or drainage that is yellow, yellow-green, or foul-smelling Increased swelling or pain, or redness or swelling in the skin around the wound A change in the color of the wound, or if streaks develop in a direction away from the wound The area between any stitches opens up An increase in the size of the wound A fever of 100.4 F (38 C) or higher, or as directed by your healthcare provider Chills, increased fatigue, or a loss of appetite [id number] [employer]. [address] [place] [address], [place] [address]. All rights reserved. This information is not intended as a substitute for professional medical care. Always follow your healthcare professional's instructions. 06/16/2021 14:18:02 Laceration: How to Minimize Scarring Laceration: How to Minimize Scarring A laceration is a cut through one or more layers of the skin. Cuts heal as the edges of the cut grow together and heal. After the cut heals, the skin may not look exactly the same. The john left behind is called a scar. Scars are a natural part of the healing process. They are hard to avoid. How much you may scar depends on the depth of the cut, its location on your body, your age, and how your skin heals. Some people tend to heal with more scarring than others. Most scars fade and become less noticeable over time. You can take steps to help this process along. NOTE: Please inform the staff of your last tetanus shot and if your wound was caused by a oswaldo or dirty object. What you can do The tips below can help reduce scarring as your wound heals. Keep the wound clean. Unless you are told to keep the area dry, gently wash the area with mild soap and water. You don't need to use antibacterial soap. Keep the wound moist. Apply petroleum jelly to the wound to keep it moist and prevent a scab from forming. Scabs lengthen the time it takes a wound to heal. Cover the wound. Use a non-adhesive bandage or gauze pad with paper tape. Change the bandage daily or if it gets wet or dirty. Try hydrating or silicone gel sheets. These dressings keep the wound moist and may help it heal faster with less scarring. They may be useful for larger wounds, scrapes, sores, tracy, or wounds with persistent redness. Ask your healthcare provider whether you should use this product on your wound. If you have stitches (sutures), follow your healthcare provider's instructions. Care for the wound as instructed. Also, return to have stitches removed on time. If you wait, scarring might be worse. Use sunscreen. Once the wound heals, apply sunscreen to the area daily. Sun may cause the scar to be more visible and discolored. Once the wound heals, there is some evidence that [id number] scar creams can reduce the appearance of a scar. Follow up Make a follow-up appointment as directed by our staff. If you are advised to see a specialist or you have concerns about scarring, please contact a pneumatic tester mechanic. When to seek medical advice When to seek medical advice Call your health care provider right away if any of these occur: Shaking chills or fever above 100.4 F (38 C) Bleeding that soaks the dressing Roundup fluid weeping from the wound Increased drainage from the wound or drainage that is yellow, yellow-green, or has a foul odor Increased swelling, pain, or redness in the skin around the wound A change in the color or size of the wound Increased fatigue Loss of appetite Sutures pulling away from the wound or pulling apart [id number] [employer]. [address] [place] [address]. All rights reserved. This information is not intended as a substitute for professional medical care. Always follow your healthcare professional's instructions. 06/16/2021 14:17:56 LACERATION, All Laceration (All Closures) A laceration is a cut through the skin. This will usually require stitches (sutures) or demi if it is deep. Minor cuts may be treated with a surgical tape closure or skin glue. Home care The following guidelines will help you care for your laceration at home: Extremity, face, or trunk wounds Keep the wound clean and dry. If a bandage was applied and it becomes wet or dirty, replace it. Otherwise, leave it in place for the first 24 hours. If stitches or demi were used, clean the wound daily. After removing the bandage, wash the area with soap and water. Use a wet cotton swab to loosen and remove any blood or crust that forms. The doctor may prescribe an antibiotic cream or ointment to prevent infection. Do not stop taking this medication until you have finished the prescribed course or the doctor tells you to stop. The doctor may also prescribe medications for pain. Follow the doctor s instructions for taking these medications. You may remove the bandage to shower as usual after the first 24 hours, but do not soak the area in water (no swimming) until the stitches or demi are removed. If surgical tape was used, keep the area clean and dry. If it becomes wet, blot it dry with a towel. If skin glue was used, do not scratch, rub, or pick at the adhesive film. Do not place tape directly over the film. Do not apply liquid, ointment, or creams to the wound while the film is in place. Do not clean the wound with peroxide and do not apply ointments. Avoid activities that cause heavy sweating until the film has fallen off. Protect the wound from prolonged exposure to sunlight or tanning lamps. You may shower as usual but do not soak the wound in water (no baths or swimming). The film will fall off by itself in 5 10 days. Scalp wounds During the first two days, you may carefully rinse your hair in the shower to remove blood, glass or dirt particles. After two days, you may shower and shampoo your hair normally. Do not soak your scalp in the tub or go swimming until the stitches or demi have been removed. Talk with your doctor before applying any antibiotic ointment to the wound. Mouth wounds Eat soft foods to reduce pain. If the cut is inside of your mouth, clean by rinsing after each meal and at bedtime with a mixture of equal parts water and hydrogen peroxide (do not swallow!). Or, you can use a cotton swab to directly apply hydrogen peroxide onto the cut. Mouth wounds can be painful when eating. You may use an [id number] local numbing solution for pain relief. If this is not available, you may use any numbing solution for teething babies. You may apply this directly to the sores with a cotton-tip swab or with your finger. Follow-up care Follow up with your health care provider. Most skin wounds heal within ten days. Mouth and facial wounds heal within five days. However, even with proper treatment, a wound infection may sometimes occur. Therefore, you should check the wound daily for signs of infection listed below. Stitches should be removed from the face within five days; stitches and demi should be removed from other parts of the body within 7 14 days. If dissolving stitches were used in the mouth, these will fall out or dissolve without the need for removal. If tape closures were used, remove them yourself if they have not fallen off after 7 days. If skin glue was used, the film will fall off by itself in 5 10 days. When to seek medical advice Call your health care provider right away if any of these occur: Bleeding not controlled by direct pressure Signs of infection, including increasing pain in the wound, increasing wound redness or swelling, or pus coming from the wound Fever of 100.4 F (38 C) or higher, or as directed by your health care provider Stitches or demi come apart or fall out or surgical tape falls off before 7 days Wound edges re-open [id number] [employer]. [address] [place] [address]. All rights reserved. This information is not intended as a substitute for professional medical care. Always follow your healthcare professional's instructions. Follow Up Care 06/16/2021 13:55:52 [facility]:[place] Address: [address] [place] [id number]- When:2-4 days [facility] Evaluation + Plan note No data available for this section [facility] Evaluation note No assessment inform ation available [facility] Work Phone: Hospital Discharge instructions No data available for this section [facility] Progress note No data available for this section [facility] Summary Purpose Family History No Family History Records FoundNo Family History Records FoundNo Family History Records FoundNo Family History Records FoundNo Family History Records Found Advance Directives No Advanced Directives Records Found Advance Directive Response Recorded Date/ Time Advance Directives No June 24, 023 8:35am Organ Donor No June 24, 2022 8:35am Tissue Donor No June 24, 2022 8:35am Additional Source Comments (unrecognized sect ion and content) No Status Records FoundNo Status Records FoundNo Status Records FoundNo Status Records FoundNo Status Records Found INFORMATION SOURCE (unrecogn ized section and content) DATE CREATED AUTHOR AUTHOR'S ORGANIZ ATION 07/18/2019 [facility] DATE CREATED AUTHOR AUTHOR'S ORGANIZ ATION 09/30/2020 [place] [facility] DATE CREATED AUTHOR AUTHOR'S ORGANIZ ATION 05/29/2022 [facility] ([place]) DATE CREATED AUTHOR AUTHOR'S ORGANIZ ATION 07/01/2022 [facility] ([place]) Care Team (unrecognized sect ion and content) Team Status: Inactive Member Role Status Dates [facility] Primary Care Provi ginette Active Edwin Edge MD Emergency Provider Active Care Team (unrecognized sect ion and content) Care Team Personnel Name: [place], [facility] Position: Physician Member Role: Primary Care Physician Address: Address: [address] [place] [address] Care Team Related Persons Name: NADRÉS COTTO Care Team Personnel Name: [place] Position: Physician Member Role: Primary Care Physician Address: Address: [address] [place] [address] Name: LYLE BAUM DO Position: ED Physician Member Role: ED Physician Address: Address: [address] [place] [address] Name: Samantha Pabon RN Position: RN Member Role: ED RN Care Team Related Persons Name: ANDRÉS COTTO Goals (unrecognized section and content) Goals may be documented in a n alternate section FOR RECORDS PERTAINING TO PATIENTS WHO ARE OR HAVE BEEN ENROLLED IN A CHEMICAL DEPENDENCY/SUBSTANCEABUSE PROGRAM, SOME INFORMATION MAY BE OMITTED. This clinical summary was aggregated from multiple sources. Caution should be exercised in using it in the provision of clinical care. This summary normalizes information from multiple sources, and as a consequence, information in this document may materially change the coding, format and clinical context of patient data. In addition, data may be omitted in some cases. CLINICAL DECISIONS SHOULD BE BASED ON THE PRIMARY CLINICAL RECORDS. [facility] [employer] [facility] provides no warranty or guarantee of the accuracy or completeness of information in this document.
== END 2023-05-24 11:16 | disposition home or self-care (01) ==
PROVIDERS: Emergency Provider Emergency Medicine; Visit Provider Emergency Medicine
DX: K29.71 Gastritis, unspecified, with bleeding (principal); R05.9 Cough, unspecified; Z87.19 Personal history of other diseases of the digestive system
CPT/HCPCS: 80053; 81001; 82274; 85025; 99283